=== PATIENT | male | born 1980 | race Caucasian/White ===

== ENCOUNTER 2016-10-09 03:19 | Emergency (ER) | payer SELFPAY ==
[~2016-10-09] VITALS: Ht 172.7 cm; Wt 75.0 kg
[2016-10-09 03:21] VITALS: BP 110/63
== END 2016-10-09 03:43 | disposition home or self-care (01) ==
LOC: EDBD 03:19 → ED 03:42
DX: F10.120 Alcohol abuse with intoxication, uncomplicated (principal)
CPT/HCPCS: 99283